=== PATIENT | female | born 1945 | race Two or more races ===

== ENCOUNTER 2023-08-13 08:11 | Outpatient (CLI) | payer OTHER | END 2023-08-13 08:17 | disposition home or self-care (01) | LOC: TOM 08:11 | PROVIDERS: ATTEND Internal Medicine Gastroenterology | DX: J44.9 Chronic obstructive pulmonary disease, unspecified (principal); Z86.010 Personal history of colon polyps; Z12.11 Encounter for screening for malignant neoplasm of colon ==